=== PATIENT | female | born 1950 | race Caucasian/White ===

== ENCOUNTER → 2017-01-03 | Outpatient (CLI) | payer MEDICARE ==
--- NOTE | 2017-01-03 16:14 | PCVCIMAG ---
APPROVED REPORT Patient Location: Out-Patient Indications Bruit Doppler Spectral Velocity Analysis PSV / EDVPSV / EDV ECA (R) 75 / 18 cm/sECA (L) 48 / 11 cm/s dICA (R) 56 / 30 cm/sdICA (L) 71 / 30 cm/s Samanta (R) 84 / 31 cm/smICA (L) 96 / 34 cm/s pICA (R) 57 / 19 cm/spICA (L) 52 / 15 cm/s Bulb (R) 63 / 22 cm/sBulb (L) 67 / 21 cm/s dCCA (R) 72 / 22 cm/sdCCA (L) 70 / 21 cm/s mCCA (R) 73 / 18 cm/smCCA (L) 80 / 20 cm/s Vert (R) 44 / 15 cm/sVert (L) 51 / 22 cm/s Findings The right carotid bulb has mild plaque. The right proximal internal carotid artery shows no significant stenosis. The right common carotid artery shows no significant stenosis. The right external carotid artery shows no significant stenosis. The left carotid bulb has no significant plaque. The left proximal internal carotid artery shows no significant stenosis. The left common carotid artery shows no significant stenosis. The left external carotid artery shows no significant stenosis. Conclusion 1. Mild plaquing. No significant stenosis involving either carotid artery 2. Antegrade vertebral flow
== END | disposition home or self-care (01) ==
LOC: PCVCIMAG 15:15
PROVIDERS: ATTEND Internal Medicine Cardiovascular Disease
DX: I65.21 Occlusion and stenosis of right carotid artery (principal); I25.10 Atherosclerotic heart disease of native coronary artery without angina pectoris; I10 Essential (primary) hypertension; E78.5 Hyperlipidemia, unspecified
CPT/HCPCS: 93880

== ENCOUNTER → 2017-01-08 | Outpatient (CLI) | payer MEDICARE ==
--- NOTE | 2017-01-08 16:58 | PCVCIMAG ---
APPROVED REPORT Study performed: 01/08/2017 10:23:08 EXAM: Comprehensive 2D, Doppler, and color-flow Echocardiogram Patient Location: Echo lab Status: routine Other Information Study Quality: Good Risk Factors: Cardiac Risk Factors: SOB Indications Murmur Dyspnea CAD 2D Dimensions LVEF(%): 44.28 (>50%) IVSd: 13.64 (7-11mm) LVDd: 34.45 mm PWd: 12.69 (7-11mm)Ascending Ao: 37.89 (22-36mm) LVDs: 27.11 (25-40mm) Left Atrium: 36.76 (27-40mm) Aortic Root: 36.85 mm LV Single Plane 4CH: 60.07 % LV Single Plane 2CH: 61.46 %Edwards's LVEF: 60.76 % Biplane EF: 60.9 % Volumes Left Atrial Volume (Systole) Single Plane 4CH: 35.41 mLSingle Plane 2CH: 54.54 mL LA ESV Index: 24.00 mL/m2 Aortic Valve AoV Peak Elian.: 1.69 m/s AO Peak Gr.: 11.45 mmHgLVOT Max P.98 mmHg LVOT Max V: 1.12 m/s AI Vmax: 4.40 m/s AI [place]: 2.04 m/s2 AI PHT: 626.27 ms Mitral Valve E/A Ratio: 0.5 MV Decel. Time: 384.68 ms MV E Max Elian.: 0.47 m/s MV A Elian.: 0.98 m/s IVRT: 166.09 ms Pulmonary Vein P Vein S: 0.29 m/sP Vein A: 0.43 m/s P Vein D: 0.47 m/sP Vein A Dur.: 141.9 msec P Vein S/D Ratio: 0.62 Tricuspid Valve TR Peak Elian.: 2.00 m/s TR Peak Gr.: 16.04 mmHg Left Ventricle The left ventricle is normal size. There is normal LV segmental wall motion. Mild concentric left ventricular hypertrophy. Left ventricular systolic function is normal. The left ventricular ejection fraction is within the normal range. LVEF is 60%. Grade I - abnormal relaxation pattern. Right Ventricle The right ventricle is normal size. The right ventricular systolic function is normal. Atria The left atrium size is normal. The right atrium size is normal. Aortic Valve Mild aortic valve sclerosis. Mild aortic regurgitation. There is no aortic valvular stenosis. Mitral Valve The mitral valve is normal in structure. Mild mitral regurgitation. No evidence of mitral valve stenosis. Tricuspid Valve The tricuspid valve is normal in structure. Trace tricuspid regurgitation with PAP of 23 mmHg. Pulmonic Valve The pulmonary valve is normal in structure. There is no pulmonic valvular regurgitation. Great Vessels The aortic root is normal in size. IVC is normal in size and collapses with >50% inspiration Pericardium There is no pericardial effusion. <Conclusion> The left ventricle is normal size. The left ventricle is normal size. Mild concentric left ventricular hypertrophy. Left ventricular systolic function is normal. The left ventricular ejection fraction is within the normal range. LVEF is 60%. Grade I - abnormal relaxation pattern. The right ventricle is normal size. The left atrium size is normal. Mild aortic valve sclerosis. Mild aortic regurgitation. Mild mitral regurgitation. Trace tricuspid regurgitation with PAP of 23 mmHg. There is no pericardial effusion.
--- NOTE | 2017-01-08 17:18 | PCVCIMAG ---
APPROVED REPORT Exam: Stress Echocardiogram Indication: CAD s/p PCI, Dyspnea, Murmur Patient Location: Echo lab Stress Nurse: Arleen Talamantes RN Status: routine HR: 62 bpm Rhythm: NSR Medical History Medical History: CAD s/p stent Procedure The patient underwent an Exercise Stress Test using the Isaías Protocol. Blood pressure, heart rate, and EKG were monitored. An Echocardiogram was performed by manufacturing plant technician in four stages in quad fashion. At peak stress, four selected images were obtained and placed side by side with resting images for comparison. Stress Test Details Stress Test: Exercise stress testing was performed using a Isaías protocol. HR Resting HR: 62 bpmMax Heart Rate (APMHR): 154 bpm Max HR Achieved: 160 bpmTarget HR (85% APMHR): 130 bpm % of APMHR: 103 Recovery HR: 88 bpm HR response to stress: Normal HR response to stress BP Resting BP: 130/76 mmHg Max BP: 220/88 mmHg Recovery BP: 174/78 mmHg ECG Resting ECG: Sinus Rhythm Stress ECG: Sinus Rhythm Arrhythmia: None Recovery ECG: Sinus Rhythm Recovery Arrhythmia: None Clinical Reason for Termination: Maximal effort Exercise duration: 12 min sec Highest Stage Achieved: Stage 4: 4.2 mph at 16% grade. Exercise capacity: 13.7 METs Overall Exercise Capacity for Age: Good Pre-Stress Echo The resting Echocardiogram showed normal left ventricular contractility with an estimated Ejection Fraction of about >55%. Normal wall motion in all segments on baseline images. Post-Stress Echo The stress Echocardiogram showed normal left ventricular contractility with an estimated Ejection Fraction of about 65-70%. Normal augmentation of wall motion in all segments on post stress images. Clinical No clinical or ECG evidence for ischemia. Conclusion Clinical Response: Non-ischemic Exercise Capacity: Average Stress ECG Response: Non-ischemic Stress Echo Images: Non-ischemic
== END | disposition home or self-care (01) ==
LOC: PCVCIMAG 10:19
PROVIDERS: ATTEND Internal Medicine Cardiovascular Disease
DX: I08.3 Combined rheumatic disorders of mitral, aortic and tricuspid valves (principal); I10 Essential (primary) hypertension; E78.5 Hyperlipidemia, unspecified; R01.1 Cardiac murmur, unspecified; I25.10 Atherosclerotic heart disease of native coronary artery without angina pectoris; Z95.1 Presence of aortocoronary bypass graft; Z95.5 Presence of coronary angioplasty implant and graft
CPT/HCPCS: 93306; 93351

== ENCOUNTER → 2017-10-09 | Outpatient (CLI) | payer MEDICARE | END | disposition home or self-care (01) | LOC: PCVCCLINIC 11:26 | DX: I25.10 Atherosclerotic heart disease of native coronary artery without angina pectoris (principal); I10 Essential (primary) hypertension; R09.89 Other specified symptoms and signs involving the circulatory and respiratory systems; E03.9 Hypothyroidism, unspecified; Z95.5 Presence of coronary angioplasty implant and graft; Z87.891 Personal history of nicotine dependence; Z79.899 Other long term (current) drug therapy | CPT/HCPCS: 80061; 93005; G0463 ==

== ENCOUNTER → 2018-09-16 | Outpatient (CLI) | payer MEDICARE ==
--- NOTE | 2018-09-16 13:30 | PCVCIMAG ---
APPROVED REPORT Study performed: 09/16/2018 11:05:43 Exam: Stress Echocardiogram Indication: Hyperlipidemia, Hypertension, CAD Patient Location: Echo lab Stress Nurse: Arleen Talamantes RN Status: routine Ht: 5 ft 6 in HR: 69 bpm BP: 130/80 mmHg Rhythm: NSR Medical History Medical History: CAD s/p stent Procedure The patient underwent an Exercise Stress Test using the Isaías Protocol. Blood pressure, heart rate, and EKG were monitored. An Echocardiogram was performed by copier technician in four stages in quad fashion. At peak stress, four selected images were obtained and placed side by side with resting images for comparison. Stress Test Details Stress Test: Exercise stress testing was performed using a Isaías protocol. HR Resting HR: 69 bpmMax Heart Rate (APMHR): 153 bpm Max HR Achieved: 157 bpmTarget HR (85% APMHR): 130 bpm % of APMHR: 102 Recovery HR: 92 bpm HR response to stress: Normal HR response to stress BP Resting BP: 130/80 mmHg Max BP: 188/74 mmHg Recovery BP: 176/78 mmHg BP response to stress: Normal blood pressure response to stress. ECG Resting ECG: Sinus Rhythm Stress ECG: Sinus Rhythm Recovery ECG: Sinus Rhythm Clinical Reason for Termination: Maximal effort Exercise duration: 11 min 12 sec Highest Stage Achieved: Stage 4: 4.2 mph at 16% grade. Exercise capacity: 13.40 METs Overall Exercise Capacity for Age: Good Pre-Stress Echo The resting Echocardiogram showed normal left ventricular contractility with an estimated Ejection Fraction of about 55-60%. Normal wall motion in all segments on baseline images. Post-Stress Echo The stress Echocardiogram showed normal left ventricular contractility with an estimated Ejection Fraction of about 60-65%. Normal augmentation of wall motion in all segments on post stress images. Clinical No clinical or ECG evidence for ischemia. Conclusion Clinical Response: Non-ischemic Exercise Capacity: Average Stress ECG Response: Non-ischemic Stress Echo Images: Non-ischemic Other Information Study Quality: Good
== END | disposition home or self-care (01) ==
LOC: PCVCIMAG 13:08
PROVIDERS: ATTEND Internal Medicine Cardiovascular Disease
DX: I10 Essential (primary) hypertension (principal); E78.5 Hyperlipidemia, unspecified; I25.10 Atherosclerotic heart disease of native coronary artery without angina pectoris
CPT/HCPCS: 93325; 93351

== ENCOUNTER → 2019-05-04 | Outpatient (CLI) | payer MEDICARE | END | disposition home or self-care (01) | LOC: PCVCCLINIC 14:43 | PROVIDERS: ATTEND Internal Medicine Cardiovascular Disease | DX: I25.10 Atherosclerotic heart disease of native coronary artery without angina pectoris (principal); I65.23 Occlusion and stenosis of bilateral carotid arteries; E78.5 Hyperlipidemia, unspecified; E03.9 Hypothyroidism, unspecified; Z87.891 Personal history of nicotine dependence; Z79.899 Other long term (current) drug therapy; Z95.5 Presence of coronary angioplasty implant and graft; Z72.89 Other problems related to lifestyle | CPT/HCPCS: 36415; 80061; 93005; G0463 ==